=== PATIENT | female | born 1965 | race Caucasian/White ===

== ENCOUNTER 2018-06-02 06:39 | Emergency (ER) | END 2018-06-02 09:21 | disposition home or self-care (01) ==

== ENCOUNTER 2019-01-12 19:48 | Emergency (ER) | payer MEDICAID, OTHER ==
[~2019-01-12] VITALS: Ht 165.1 cm; Wt 125.4 kg
[~2019-01-12 19:48] MED LIST: CEPH-443 PO; IBUP-1542 PO; ONDA4TAB8 PO
[2019-01-12 19:53] VITALS: Ht 165.1 cm; Wt 125.4 kg
[2019-01-12] MEDS ORDERED: ONDANSETRON 4 MG INJ IV STA (22:23)
[2019-01-12] MEDS ORDERED: morphine 4 MG/ML VIAL IV STA (22:23)
[2019-01-12] MEDS ORDERED: SOD CHLORIDE 0.9% 500 ML IV STA (22:23)
--- NOTE | 2019-01-13 00:59 | ERD ---
ER Documentation Chief Complaint Chief Complaint c/o generalized abd pain. +vomiting. x6 hrs HPI Is a 50-year-old female comes with generalized abdominal pain for the past 6 hours. Pain is mild to moderate intensity with no exacerbating alleviating factors but tends to migrate to the right upper quadrant. Patient also to 3 episodes of nonbilious nonbloody vomiting. No fevers no chills. No recent travel. No sick contacts. Normal bowel movements. No other current complaints. Pain tends to worsen after eating. ROS All systems reviewed and are negative except as per history of present illness. Medications Home Meds Discontinued Scripts Cephalexin* (Keflex*) 500 Mg Capsule, 500 MG PO QID for 5 Days, CAP Prov:SONIA SPAULDING MD 06/02/18 Ondansetron Hcl* (Zofran*) 4 Mg Tablet, 4 MG PO Q8H PRN for NAUSEA AND/OR VOMITING, #30 TAB Prov:SONIA SPAULDING MD 06/02/18 Ibuprofen* (Ibuprofen*) 600 Mg Tablet, 600 MG PO Q8 PRN for PAIN AND/OR INFLAMMATION, #30 TAB Prov:SONIA SPAULDING MD 06/02/18 Allergies Allergies: Coded Allergies: No Known Allergy (Unverified , 01/12/19) PMhx/Soc History of Surgery: Yes (laparoscopic tubal ligation 2002) Anesthesia Reaction: No Hx Neurological Disorder: No Hx Respiratory Disorders: No Hx Cardiac Disorders: No Hx Psychiatric Problems: No Hx Miscellaneous Medical Probl: No Hx Alcohol Use: No Hx Substance Use: No Hx Tobacco Use: No Smoking Status: Never smoker Physical Exam Vitals Vital Signs Date Temp Pulse Resp B/P (MAP) Pulse Ox O2 O2 Flow FiO2 Time Delivery Rate 01/13/19 72 16 141/81 99 00:37 (101) 01/12/19 77 15 162/93 99 Room Air 22:50 (116) 01/12/19 97.4 85 22 222/116 97 19:53 (151) Physical Exam Const: No acute distress Head: Atraumatic Eyes: Normal Conjunctiva ENT: Normal External Ears, Nose and Mouth. Neck: Full range of motion. No meningismus. Resp: Clear to auscultation bilaterally Cardio: Regular rate and rhythm, no murmurs Abd: Soft, non tender, non distended. Normal bowel sounds Skin: No petechiae or rashes Back: No midline or flank tenderness Ext: No cyanosis, or edema Neur: Awake and alert Psych: Normal Mood and Affect Result Diagram: 01/12/19223801/12/192238 Results 24 hrs Laboratory Tests Test 01/12/19 22:39 White Blood Count 10.3 10^3/ul Red Blood Count 5.09 10^6/ul Hemoglobin 14.5 g/dl Hematocrit 43.7 % Mean Corpuscular Volume 85.9 fl Mean Corpuscular Hemoglobin 28.5 pg Mean Corpuscular Hemoglobin Concent 33.2 g/dl Red Cell Distribution Width 12.9 % Platelet Count 249 10^3/UL Mean Platelet Volume 11.4 fl Immature Granulocytes % 0.300 % Neutrophils % 78.0 % Lymphocytes % 15.7 % Monocytes % 4.5 % Eosinophils % 1.1 % Basophils % 0.4 % Nucleated Red Blood Cells % 0.0 /100WBC Immature Granulocytes # 0.030 10^3/ul Neutrophils # 8.0 10^3/ul Lymphocytes # 1.6 10^3/ul Monocytes # 0.5 10^3/ul Eosinophils # 0.1 10^3/ul Basophils # 0.0 10^3/ul Nucleated Red Blood Cells # 0.0 10^3/ul Urine Color YELLOW Urine Clarity SLIGHTLY CLOUDY Urine pH 6.0 Urine Specific Perry 1.021 Urine Ketones NEGATIVE mg/dL Urine Nitrite NEGATIVE mg/dL Urine Bilirubin NEGATIVE mg/dL Urine Urobilinogen NEGATIVE mg/dL Urine Leukocyte Esterase NEGATIVE Anai/ul Urine Microscopic RBC 3 /HPF Urine Microscopic WBC 3 /HPF Urine Squamous Epithelial Cells FEW /HPF Urine Bacteria FEW /HPF Urine Mucus FEW /HPF Urine Hemoglobin NEGATIVE mg/dL Urine Glucose NEGATIVE mg/dL Urine Total Protein 2+ mg/dl Sodium Level 143 mmol/L Potassium Level 4.1 mmol/L Chloride Level 105 mmol/L Carbon Dioxide Level 25 mmol/L Anion Gap 13 Blood Urea Nitrogen 14 mg/dl Creatinine 0.61 mg/dl Est Glomerular Filtrat Rate mL/min > 60 mL/min Glucose Level 152 mg/dl Calcium Level 9.2 mg/dl Total Bilirubin 0.4 mg/dl Direct Bilirubin 0.00 mg/dl Indirect Bilirubin 0.4 mg/dl Aspartate Amino Transf (AST/SGOT) 29 IU/L Alanine Aminotransferase (ALT/SGPT) 23 IU/L Alkaline Phosphatase 113 IU/L Troponin I 0.016 ng/ml Total Protein 8.4 g/dl Albumin 4.6 g/dl Globulin 3.80 g/dl Albumin/Globulin Ratio 1.21 Lipase 55 U/L Current Medications Medications Dose Sig/Elvia Start Time Status Last (Trade) Ordered Route PRN Stop Time Admin Dose Reason Admin Sodium 500 ml @ Q1H STAT 01/12/19 DC 01/12/19 Chloride 500 mls/hr IV 22:23 01/12/19 22:34 23:22 Morphine 4 mg ONCE STAT 01/12/19 DC 01/12/19 Sulfate IV 22:23 01/12/19 22:33 (morphine) 22:25 Ondansetron 4 mg ONCE STAT 01/12/19 DC 01/12/19 HCl (Zofran IV 22:23 01/12/19 22:33 Inj) 22:25 Procedures/MDM Medical decision makin-year-old female with evidence of what looks to be cholelithiasis that is symptomatic. At this point is clinically stable. No evidence of cholecystitis. Patient be discharged with tramadol and Zofran. She is to follow-up in 8 hours for serial abdominal exams to which he agrees. Patient's gastrointestinal symptoms have stabilized while in the department. No evidence of severe dehydration, sepsis, or surgical abdomen. Extensive discussion with family and patient that occult disease cannot be ruled out. 8 hour recheck for repeat abdominal exam is planned. Departure Diagnosis: Primary Impression: Cholelithiasis Cholelithiasis location: gallbladder Cholecystitis presence: without cholecystitis Biliary obstruction: without biliary obstruction Qualified Codes: K80.20 - Calculus of gallbladder without cholecystitis without obstruction Condition: Stable ROSALVA GARCIA Jan 13, 2019 00:59
[2019-01-13] MEDS ORDERED: ONDA4TAB14 PO (01:00)
[2019-01-13] MEDS ORDERED: TRAM50TA2 PO (01:00)
[2019-01-13 01:29] VITALS: BP 148/84; PULSE 66; RESP 19
== END 2019-01-13 01:31 | disposition home or self-care (01) ==
LOC: E/R 19:48
DX: K80.20 Calculus of gallbladder without cholecystitis without obstruction (principal)
CPT/HCPCS: 36415; 71045; 74176; 80053; 81001; 83690; 84484; 85025; 93005; 96374; 96375; J2270; J2405; J7040; Z7502

== ENCOUNTER 2019-02-09 13:17 | Emergency (ER) | payer OTHER ==
[~2019-02-09] VITALS: Ht 160 cm; Wt 125.1 kg
[~2019-02-09 13:17] MED LIST changes: -CEPH-443 PO; -IBUP-1542 PO; +ONDA4TAB14 PO; -ONDA4TAB8 PO; +TRAM50TA2 PO
[2019-02-09 13:41] VITALS: Ht 160 cm; Wt 125.1 kg
--- NOTE | 2019-02-09 15:29 | ERD ---
ER Documentation Chief Complaint Chief Complaint L knee pain worse x1wk; amb w cane. 'arthritis?' no relief w tylenol HPI This is a 53-year-old female with unknown past medical history who presents for 1 week of left knee pain. Constant 10 out of 10 pain, patient unable to flex knee secondary to pain, and also complaining of numbness and tingling with increased swelling of the knee and crepitus of knee. She states she has had this pain in the past with previous x-ray, but unsure of the results. Pain worse after she walked more on it. No fever chills, no known mechanism of injury. also complains of L calf pain, swelling, and SOB. She is unsure if this is a blood clot. She has taken tylenol/Motrin with no relief of her symptoms. R knee normal. ROS All systems reviewed and are negative except as per history of present illness. Medications Home Meds Active Scripts Ibuprofen* (Motrin*) 800 Mg Tab, 800 MG PO Q6H PRN for PAIN AND OR ELEVATED TEMP, #30 TAB Prov:CARLIE KINCAID PA-C 02/09/19 Ondansetron (Ondansetron Odt) 4 Mg Tab.rapdis, 4 MG PO Q6H PRN for NAUSEA AND/OR VOMITING, #10 TAB Prov:ROSALVA GARCIA 01/13/19 Tramadol HCl (Tramadol HCl) 50 Mg Tablet, 50 MG PO Q4 PRN for PAIN, #20 TAB Prov:ROSALVA GARCIA 01/13/19 Allergies Allergies: Coded Allergies: No Known Allergy (Unverified , 01/12/19) PMhx/Soc History of Surgery: Yes (laparoscopic tubal ligation 2002) Anesthesia Reaction: No Hx Neurological Disorder: No Hx Respiratory Disorders: No Hx Cardiac Disorders: No Hx Psychiatric Problems: No Hx Miscellaneous Medical Probl: No Hx Alcohol Use: No Hx Substance Use: No Hx Tobacco Use: No Smoking Status: Never smoker FmHx Family History: No diabetes Physical Exam Vitals Vital Signs Date Temp Pulse Resp B/P (MAP) Pulse Ox O2 O2 Flow FiO2 Time Delivery Rate 02/09/19 98.4 71 16 155/84 95 Room Air 16:40 (107) 02/09/19 97.0 94 20 127/75 95 13:41 (92) Physical Exam Const: in acute pain Head: Atraumatic Eyes: Normal Conjunctiva ENT: Normal External Ears, Nose and Mouth. Neck: Full range of motion. No meningismus. Resp: Clear to auscultation bilaterally Cardio: Regular rate and rhythm, no murmurs Abd: Soft, non tender, non distended. Normal bowel sounds Skin: No petechiae or rashes Back: No midline or flank tenderness Ext: LLE - skin intact, +edema of knee and calf without erythema. no deformities, no wounds. limited knee flexion 2/2 pain. +Canela sign. 2+DP/PT, normal sensation. Neur: Awake and alert Psych: Normal Mood and Affect Results 24 hrs Current Medications Medications Dose Sig/Elvia Start Time Status Last (Trade) Ordered Route PRN Stop Time Admin Dose Reason Admin Ibuprofen 800 mg ONCE ONCE 02/09/19 DC (Motrin) PO 15:30 02/09/19 15:31 Procedures/MDM ED COURSE: The patient was stable throughout ED course. I kept the patient informed of laboratory and diagnostic imaging results throughout the ED course. DIAGNOSTIC IMAGING: Read by radiologist. PROCEDURE: US Lower extremity Venous. CLINICAL INDICATION: leg edema, pain TECHNIQUE: Multiple sonographic images of the left lower extremity deep venous system was obtained utilizing grayscale, color-flow, compressive sonography and doppler imaging with augmentation. The images were reviewed on a PACS workstation. COMPARISON: None. FINDINGS: There is normal compressibility and flow within the left common femoral, femoral, posterior tibial, peroneal and popliteal veins. RPTAT: AA IMPRESSION: No sonographic evidence for deep venous thrombosis. .Dilip Klein MD, MD Date Time Electronically viewed and signed by .Dilip Klein MD, on 02/09/2019 15:36 PROCEDURE: XR Knee. CLINICAL INDICATION: Left knee pain. TECHNIQUE: AP, lateral, and oblique views of the left knee are available for review. COMPARISON: None available FINDINGS: There are mild osteoarthritic changes with small osteophytes at all compartm ents.. No acute fracture or dislocation is seen. No radiopaque foreign body is identified. Alignment is anatomic. No joint effusion is seen. IMPRESSION: 1. Mild degenerative osteoarthritic changes. 2. No acute fracture or dislocation is seen. RPTAT: GG .Gonzales Feliciano MD, MD Date Time Electronically viewed and signed by .Goznales Feliciano MD, MD on 02/09/2019 16:21 PROCEDURES: none MEDICATIONS GIVEN: motrin Patient tolerated medication well with no adverse reactions. Patient reported improvement in pain. MEDICAL DECISION MAKING: Patient is a 53 year old female complaining of left leg calf swelling, and left knee pain x 1 week . She states she does not have a PCP and is unaware of her me dical hx or problems. She has concerns for a blood clot and knee damage. She states the leg is so painful that she cannot walk on it. Physical exam showed nonspecific tenderness of the knee. The calf was slightly swollen. VA U/S was performed to r/o DVT and was negative. Knee Xray was done showing mild arthritic changes. At this time, I believe the patient is suffering from inflammation in the knee. I have low suspicion for a fracture, gout, septic arthritis, osteomyelitis. Vital signs were reviewed. Patient is afebrile. Patient was not hypoxic. Patient was hemodynamically stable. Patient was told to follow up with primary care for further care and management. A list of PCPs at local [facility] were given to the patient in order to establish care. PRESCRIPTION: Motrin DISCHARGE: At this time, patient is stable for discharge and outpatient management. I have instructed the patient to follow-up with his/her primary care physician in 1-2 days. I have discussed with the patient the possibility of needing to see a specialist for further workup and imaging studies if symptoms persist. I have instructed the patient to promptly return to the ER for any new or worsening symptoms including increased pain, fever, nausea, vomiting, weakness or LOC. The patient expressed understanding of and agreement with this plan. All questions were answered. Home care instructions were provided. Disclaimer: Inadvertent spelling and grammatical errors are likely due to EHR/dictation software use and do not reflect on the overall quality of patient care. Also, please note that the electronic time recorded on this note does not necessarily reflect the actual time of the patient encounter. Departure Diagnosis: Primary Impression: Knee pain Chronicity: acute Laterality: left Qualified Codes: M25.562 - Pain in left knee Condition: Fair Patient Instructions: Knee Pain, Uncertain Cause Referrals: [facility] YOU HAVE RECEIVED A MEDICAL SCREENING EXAM AND THE RESULTS INDICATE THAT YOU DO NOT HAVE A CONDITION THAT REQUIRES URGENT TREATMENT IN THE EMERGENCY DEPARTMENT. FURTHER EVALUATION AND TREATMENT OF YOUR CONDITION CAN WAIT UNTIL YOU ARE SEEN IN YOUR DOCTORS OFFICE WITHIN THE NEXT 1-2 DAYS. IT IS YOUR RESPONSIBILITY TO MAKE AN APPOINTMENT FOR FOLOW-UP CARE. IF YOU HAVE A PRIMARY DOCTOR --you should call your primary doctor and schedule an appointment IF YOU DO NOT HAVE A PRIMARY DOCTOR YOU CAN CALL OUR PHYSICIAN REFERRAL HOTLINE AT IF YOU CAN NOT AFFORD TO SEE A PHYSICIAN YOU CAN CHOSE FROM THE FOLLOWING [facility] [address] [facility] [address] [facility] [address] [facility] [address] [facility] [address] [facility]. [facility]. [address] [facility]. [facility] YOU HAVE RECEIVED A MEDICAL SCREENING EXAM AND THE RESULTS INDICATE THAT YOU DO NOT HAVE A CONDITION THAT REQUIRES URGENT TREATMENT IN THE EMERGENCY DEPARTMENT. FURTHER EVALUATION AND TREATMENT OF YOUR CONDITION CAN WAIT UNTIL YOU ARE SEEN IN YOUR DOCTORS OFFICE WITHIN THE NEXT 1-2 DAYS. IT IS YOUR RESPONSIBILITY TO M ZOË AN APPOINTMENT FOR FOLOW-UP CARE. IF YOU HAVE A PRIMARY DOCTOR --you should call your primary doctor and schedule and appointment IF YOU DO NOT HAVE A PRIMARY DOCTOR YOU CAN CALL OUR PHYSICIAN REFERRAL HOTLINE AT . IF YOU CAN NOT AFFORD TO SEE A PHYSICIAN YOU CAN CHOSE FROM THE FOLLOWING [facility] INSTITUTIONS: [facility] [address] [place] [address] [facility] [address] [place] [address] [facility] + [address] [place] [address] Additional Instructions: Llame al doctor MAANA y cale priscilla VALENTÍN PARA DENTRO DE 1-2 CRESPO.Dgale a la secretaria que nosotros le instruimos hacer esta valentín.Avise o llame si aguero condicin se empeora antes de la valentín. Regresa aqui si peor o no mejor. CARLIE KINCAID PA-C Feb 09, 2019 15:29
[2019-02-09] MEDS ORDERED: IBUPROFEN 800 MG TAB PO ONE (15:30)
[2019-02-09] MEDS ORDERED: IBUP800T48 PO (16:30)
[2019-02-09 16:40] VITALS: BP 155/84; PULSE 71; RESP 16
== END 2019-02-09 16:41 | disposition home or self-care (01) ==
LOC: FTE 13:17
DX: M25.562 Pain in left knee (principal)
CPT/HCPCS: 73562; 93971; Z7502